=== PATIENT | male | born 1980 | race Caucasian/White ===

== ENCOUNTER → 2023-03-14 | Outpatient (CLI) | payer OTHER ==
--- NOTE | 2023-03-14 09:06 | US ---
EXAMINATION TYPE: US liver DATE OF EXAM: 03/14/2023 COMPARISON: NONE CLINICAL INDICATION: Male, 42 years old with history of R94.5; Elevated liver enzymes TECHNIQUE: Multiple sonographic images of the right upper quadrant are obtained. FINDINGS: EXAM MEASUREMENTS: Liver Length: 20.3 cm Gallbladder Wall: 0.2 cm CBD: 0.7 cm Right Kidney: 12.0 x 5.7 x 6.0 cm Pancreas: wnl Liver: enlarged, heterogeneous with multiple hypoechoic and isoechoic lesions seen throughout with o ne of the largest measuring 3.6 x 3.1 x 3.8cm Gallbladder: wnl Evidence for sonographic Gross's sign: no CBD: dilated Right Kidney: wnl The visualized portions of the pancreas are unremarkable. The liver is enlarged multiple hypoechoic a nd isoechoic lesions throughout. The largest measures up to 3.8 cm in the left hepatic lobe. Gallblad sybil is within normal limits without evidence for pericholecystic fluid, wall thickening, or cholelith iasis. Per valuer, negative sonographic Gross sign. Common bile duct is mildly prominent measur ing up to 0.7 cm. Right kidney is unremarkable without evidence of hydronephrosis, solid mass, or sha dowing calculi. IMPRESSION: 1. Diffusely heterogenous and enlarged liver with multiple indeterminate masses identified. Etiologi es include multiple hemangiomas versus metastasis versus other. Further evaluation with MR or CT abdo men with and without IV contrast (liver mass protocol) is recommended. 2. Minimally prominent common bile duct measuring up to 0.7 cm. Further evaluation with MRCP is asmita mmended in the setting of #1.
== END | disposition home or self-care (01) ==
LOC: RADUSWWP 06:51
PROVIDERS: ATTEND Internal Medicine
DX: R16.0 Hepatomegaly, not elsewhere classified (principal); K80.50 Calculus of bile duct without cholangitis or cholecystitis without obstruction; R94.5 Abnormal results of liver function studies
CPT/HCPCS: 76705

== ENCOUNTER → 2023-03-23 | Outpatient (CLI) | payer OTHER ==
--- NOTE | 2023-03-23 13:56 | MR ---
EXAMINATION TYPE: MR liver wo/w con DATE OF EXAM: 03/23/2023 10:23 AM INDICATION: Patient age:Male; 42 years old; Reason for study: R16.0; COMPARISON: Ultrasound 03/14/2023 TECHNIQUE: Multiplanar multi-sequence imaging was performed without contrast. Post contrast imaging was performed. Post IV contrast subtraction images were also submitted for review. IV Contrast: 10 cc Gadavist FINDINGS: LOWER CHEST: Scattered nodules are seen throughout the lungs. There are greater than 20 lesions visua lized. The largest in the right lower lung measuring 14 mm. In the left lower lung measuring up to 15 mm. ABDOMEN Liver: Diffuse scattered lesions are seen throughout the liver the largest in the right hepatic lobe near the dome measuring up to 8.7 cm and in the left hepatic lobe segment IVb measuring 3.8 cm. These all demonstrate heterogenous postcontrast enhancement. No evidence for steatosis or cirrhosis. Gallbladder and Bile ducts: Unremarkable. Pancreas: Unremarkable. Spleen: No masses visualized. Adrenal glands: Unremarkable. Kidneys: No masses visualized. Stomach and Bowel: Unremarkable as visualized. Peritoneum: No evidence of pneumoperitoneum or free fluid. Vasculature: Unremarkable. No aortic aneurysm. Musculoskeletal: The osseous structures appear intact. Lymph Nodes: No gross evidence for lymphadenopathy. Abdominal wall: Fat-containing umbilical hernia. IMPRESSION: Partially evaluated lung bases demonstrate greater than 20 pulmonary nodules, this in combination wit h multiple hepatic masses is concerning for metastatic disease, further workup is recommended for [facility] malignancy. No primary malignancy definitively visualized in the [id number].
== END | disposition home or self-care (01) ==
LOC: RADMRIMAIN 09:10
PROVIDERS: ATTEND Internal Medicine
DX: R91.8 Other nonspecific abnormal finding of lung field (principal); R16.0 Hepatomegaly, not elsewhere classified
CPT/HCPCS: 74183; A9585

== ENCOUNTER 2023-03-27 21:38 | Emergency (ER) | payer OTHER ==
[2023-03-27 22:09] VITALS: BP 110/77; PULSE 78; RESP 18; TEMP 98.2
[2023-03-28] MEDS ORDERED: PANTOPRAZOLE 40 MG/10 ML VIAL ONE (00:42)
[2023-03-28] MEDS ORDERED: KETOROLAC 15 MG/ML 1 ML VIAL ONE (00:42)
[2023-03-28] MEDS ORDERED: SODIUM CHLORIDE 0.9% 1,000 ML BAG ONE (00:42)
[2023-03-28 06:03] LABS: ALT 30 U/L (4-49); AST 58 U/L (17-59); African American GFR (CKD) >90 (>60 ml/min/1.73 sqM); Albumin 3.3 g/dL (3.5-5.0); Alkaline Phosphatase 351 U/L (38-126); Anion Gap 8 mmol/L; Blood Urea Nitrogen 11 mg/dL (9-20); Calcium 8.3 mg/dL (8.4-10.2); Carbon Dioxide 20 mmol/L (22-30); Chloride 108 mmol/L (98-107); Glucose 100 mg/dL (74-99); Non-African American GFR(CKD) >90 (>60 ml/min/1.73 sqM); Potassium 4.1 mmol/L (3.5-5.1); Sodium 136 mmol/L (137-145); Total Bilirubin 0.6 mg/dL (0.2-1.3); Total Protein 6.9 g/dL (6.3-8.2)
[2023-03-28 06:08] LABS: Anisocytosis Slight; Basophils # (A) 0.1 k/uL (0-0.2); Basophils % (A) 1 %; Eosinophils # (A) 0.9 k/uL (0-0.7); Eosinophils % (A) 9 %; HCT 24.8 % (39.0-53.0); HGB 7.3 gm/dL (13.0-17.5); Hypochromasia Marked; Lymphocytes # (A) 1.6 k/uL (1.0-4.8); Lymphocytes % (A) 16 %; MCH 20.9 pg (25.0-35.0); MCHC 29.3 g/dL (31.0-37.0); MCV 71.3 fL (80.0-100.0); Mean Platelet Volume 9.5; Microcytosis Moderate; Monocytes # (A) 0.8 k/uL (0-1.0); Monocytes % (A) 8 %; Neutrophils # (A) 6.1 k/uL (1.3-7.7); Neutrophils % (A) 63 %; Platelet Count 389 k/uL (150-450); Poikilocytosis Slight; RBC 3.48 m/uL (4.30-5.90); RDW 17.2 % (11.5-15.5); WBC 9.6 k/uL (3.8-10.6)
== END 2023-03-28 04:15 | disposition home or self-care (01) ==
LOC: EC 21:38
DX: M79.10 Myalgia, unspecified site (principal)
CPT/HCPCS: 99283 ×2; 36415; 86900; 86901; 80053; 85025; 86850; 82272; 96374; 96375; J1885; C9113

== ENCOUNTER → 2023-04-06 | Outpatient (CLI) | payer OTHER ==
--- NOTE | 2023-04-06 14:51 | PE ---
EXAMINATION TYPE: PET CT fusion skull to thigh DATE OF EXAM: 04/06/2023 COMPARISON: MRI liver March 22, 2023 HISTORY: Solitary pulmonary nodule TECHNIQUE: Following the intravenous administration of 13.5 mCi of F-18 FDG, whole body images are p erformed from the skull base to the midthigh. Images are reviewed on the computer in the coronal, ax ial, and sagittal planes. Reconstructed rotating images are created on independent workstation and r eviewed on the computer. A localization and attenuation correction CT is performed in conjunction w ith the PET scan. Blood glucose level equals 76 SCAN: Initial Scan FINDINGS: SKULL BASE AND NECK: No areas of abnormal suspicious hypermetabolic uptake. CHEST, MEDIASTINUM, AND HILAR REGION: There are multiple scattered pulmonary nodules of varying size and shape bilaterally more numerous in the lower lungs showing mild hypermetabolic uptake. For refere nce one measures 2.2 x 1.9 cm axial image 104, max SUV is 5.14. Findings consistent with hematogenous metastatic spread of neoplasm. ABDOMEN AND PELVIS: Innumerable hypermetabolic masses throughout the slightly enlarged liver correlat e with recent MRI. Max SUV is 9.35 on axial image 136. There is abnormal 0.0 x 1.5 cm lymph node towards the kiara hepatis axial image 160, max SUV is 6.59. There is apical core type mass or neoplasm in the sigmoid colon of the pelvis near axial image 227, a bnormal hypermetabolic uptake is seen, max SUV is 12.5 to. There is suspicious 1.8 cm adjacent hyperm etabolic peritoneal lymph node or deposit axial image 211 superior to this, max SUV is 7.8. OSSEOUS STRUCTURES: No areas of abnormal hypermetabolic uptake. OTHER CT: There is coronary artery stent in the RCA distribution. There is coronary artery calcificat ion the LAD distribution. There is moderate to large sized fat-containing umbilical hernia. IMPRESSION: Overall findings are consistent with primary distal sigmoid cancer with pulmonary and hep atic metastatic disease as detailed above and few abnormal lymph nodes/peritoneal deposits in the abd omen and pelvis.
== END | disposition home or self-care (01) ==
LOC: RADPETMAIN 09:35
PROVIDERS: ATTEND Internal Medicine
DX: R91.1 Solitary pulmonary nodule (principal)
CPT/HCPCS: 78815; A9552

== ENCOUNTER 2023-04-10 19:07 | Emergency (ER) | payer OTHER ==
[2023-04-10 19:35] VITALS: BP 136/77; PULSE 94; RESP 18; TEMP 99.8
[2023-04-10] MEDS ORDERED: SODIUM CHLORIDE 0.9% 1,000 ML IV STA (19:44)
[2023-04-10] MEDS ORDERED: KETOROLAC 15 MG/ML 1 ML VIAL IVP STA (19:44)
[2023-04-10 20:05] LABS: Appearance,Urine Clear (Clear); Bilirubin,Urine Negative (Negative); Blood,Urine Negative (Negative); Color,Urine Yellow; Glucose,Urine (UA) Negative (Negative); Ketones,Urine 1+ (Negative); Leukocyte Esterase,Urine Negative (Negative); Mucus,Urine Rare /hpf; Nitrite,Urine Negative (Negative); Protein,Urine 2+ (Negative); RBC,Urine 1 /hpf (0-5); Specific Gravity,Urine 1.022 (1.001-1.035); WBC,Urine 3 /hpf (0-5)
[2023-04-10 20:07] LABS: Anisocytosis Moderate; Basophils # (A) 0.1 k/uL (0-0.2); Basophils % (A) 1 %; Eosinophils # (A) 1.1 k/uL (0-0.7); Eosinophils % (A) 9 %; HCT 28.5 % (39.0-53.0); HGB 8.3 gm/dL (13.0-17.5); Hypochromasia Marked; Lymphocytes # (A) 1.9 k/uL (1.0-4.8); Lymphocytes % (A) 16 %; MCH 21.7 pg (25.0-35.0); MCHC 29.2 g/dL (31.0-37.0); MCV 74.3 fL (80.0-100.0); Mean Platelet Volume 9.6; Microcytosis Moderate; Monocytes # (A) 0.7 k/uL (0-1.0); Monocytes % (A) 6 %; Neutrophils # (A) 7.7 k/uL (1.3-7.7); Neutrophils % (A) 66 %; Platelet Count 357 k/uL (150-450); RBC 3.83 m/uL (4.30-5.90); RDW 21.8 % (11.5-15.5); WBC 11.8 k/uL (3.8-10.6)
[2023-04-10 20:17] LABS: ALT 31 U/L (4-49); AST 73 U/L (17-59); African American GFR (CKD) >90 (>60 ml/min/1.73 sqM); Albumin 3.7 g/dL (3.5-5.0); Alkaline Phosphatase 411 U/L (38-126); Amylase 51 U/L (30-110); Anion Gap 9 mmol/L; Blood Urea Nitrogen 15 mg/dL (9-20); Calcium 8.8 mg/dL (8.4-10.2); Carbon Dioxide 22 mmol/L (22-30); Chloride 107 mmol/L (98-107); Glucose 84 mg/dL (74-99); Lipase 70 U/L (23-300); Non-African American GFR(CKD) >90 (>60 ml/min/1.73 sqM); Potassium 4.4 mmol/L (3.5-5.1); Sodium 138 mmol/L (137-145); Total Bilirubin 0.8 mg/dL (0.2-1.3)
[2023-04-10 20:22] LABS: INR 1.1 (<1.2)
[2023-04-10 20:35] LABS: Partial Thromboplastin Time 21.3 sec (22.0-30.0)
--- NOTE | 2023-04-10 22:23 | US ---
EXAMINATION TYPE: US abdomen limited DATE OF EXAM: 04/10/2023 COMPARISON: PET CT 04/06/2023 CLINICAL INDICATION: Male, 42 years old with history of RUQ pain; Colon cancer. Liver mets per other imaging modality. Patient is not NPO TECHNIQUE: Multiple sonographic images of the right upper quadrant are obtained. FINDINGS: EXAM MEASUREMENTS: Liver Length: 22.2 cm Gallbladder Wall: 0.2 cm CBD: 0.5 cm Right Kidney: 13.1 x 4.6 x 5.4 cm Pancreas: Head not well visualized Liver: Enlarged in size. Multiple focal lesions seen throughout liver. Largest on left = 3.8 x 4.6 x 3.8 cm. Gallbladder: Appears small in size, could be due to not being NPO Evidence for sonographic Gross's sign: neg CBD: wnl Right Kidney: No hydronephrosis or masses seen IMPRESSION: Hepatic compatible with metastatic lesions.
--- NOTE | 2023-04-10 22:53 | ED ---
Abdominal Pain HPI - General Chief Complaint: Abdominal Pain Stated Complaint: right side pain Time Seen by Provider: 04/10/23 19:37 Source: patient Mode of arrival: ambulatory - History of Present Illness Initial Comments: 42-year-old male presenting with chief complaint of right upper quadrant abdominal pain ongoing for several months but worsening in recent days. Patient is newly diagnosed with colon cancer, he recently received a PET scan and has an upcoming follow-up appointment with his oncologist. Patient also has history of low hemoglobin. He denies any nausea, vomiting, fever, chills. States that he has periodically had blood in his stool which has not changed over the last several months. Patient has history of polysubstance abuse. Denies drinking a lcohol. States that he is currently living in his van. No chest pain or difficulty breathing. No dizziness or palpitations or weakness. Patient is not currently on any chemotherapy or radiation therapy - Related Data Home Medications Medication Instructions Recorded Confirmed Ibuprofen [Motrin] 800 mg PO Q8H PRN 03/29/23 04/06/23 Allergies Allergy/AdvReac Type Severity Reaction Status Date / Time No Known Allergies Allergy Verified 04/10/23 19:35 Review of Systems ROS Statement: Those systems with pertinent positive or pertinent negative responses have been documented in the HPI. ROS Other: All systems not noted in ROS Statement are negative. Past Medical History Past Medical History: Coronary Artery Disease (CAD), Hyperlipidemia, Hypertension Additional Past Medical History / Comment(s): Liver mass History of Any Multi-Drug Resistant Organisms: None Reported Past Surgical History: Heart Catheterization With Stent Date of Last Stent Placement:: 2011 Past Psychological History: No Psychological Hx Reported Smoking Status: Vaper Past Alcohol Use History: None Reported Past Drug Use History: None Reported General Exam Limitations: no limitations General appearance: alert, in no apparent distress Head exam: Present: atraumatic, normocephalic, normal inspection Eye exam: Present: normal appearance, EOMI. Absent: scleral icterus, periorbital swelling Neck exam: Present: normal inspection, full ROM Respiratory exam: Present: normal lung sounds bilaterally. Absent: respiratory distress, wheezes, rales, rhonchi, stridor Cardiovascular Exam: Present: regular rate, normal rhythm, normal heart sounds. Absent: systolic murmur, diastolic murmur, rubs, gallop, clicks GI/Abdominal exam: Present: soft, normal bowel sounds, mass (RUQ). Absent: distended, tenderness, guarding, rebound, rigid Neurological exam: Present: alert, oriented X3, CN II-XII intact Psychiatric exam: Present: normal affect, normal mood Skin exam: Present: warm, dry, intact, normal color. Absent: rash Course Vital Signs 04/10/23 19:31 Temperature 99.8 F H Pulse Rate 94 Respiratory 18 Rate Blood Pressure 136/77 O2 Sat by Pulse 96 Oximetry Medical Decision Making - Medical Decision Making Was pt. sent in by a medical professional or institution (, PA, NUCLEAR MEDICAL TECH, urgent care, hospital, or penitentiary...) When possible be specific @ -No Did you speak to anyone other than the patient for history (EMS, parent, family, police, friend...)? What history was obtained from this source @ -No Did you review nursing and triage notes (agree or disagree)? Why? @ -I reviewed and agree with nursing and triage notes Were old charts reviewed (outside hosp., previous admission, EMS record, old EKG, old radiological studies, urgent care reports/EKG's, penitentiary records)? Report findings @ -Reviewed the recent PET scan which showed findings consistent with primary distal sigmoid cancer with pulmonary and hepatic metastatic disease Differential Diagnosis (chest pain, altered mental status, abdominal pain women, abdominal pain men, vaginal bleeding, weakness, fever, dyspnea, syncope, headache, dizziness, GI bleed, back pain, seizure, CVA, palpatations, mental health, musculoskeletal)? @ -MDM Differential Abdominal Pain Men: Appendicitis, cholecystitis, diverticulosis, ischemic bowel, pancreatitis, hepatitis, UTI, gastroenteritis, AAA, incarcerated hernia, bowel obstruction, constipation, inflammatory bowel, hepatitis, peptic ulcer disease, splenic infarction, perforated viscus, testicular torsion... This is not meant to be an all-inclusive list EKG interpreted by me (3pts min.). @ -As above X-rays interpreted by me (1pt min.). @ -None done CT interpreted by me (1pt min.). @ -None done U/S interpreted by me (1pt. min.). @ -Ultrasound shows hepatic compatible with metastatic lesions What testing was considered but not performed or refused? (CT, X-rays, U/S, labs)? Why? @ -None What meds were considered but not given or refused? Why? @ -None Did you discuss the management of the patient with other professionals (professionals i.e. , PA, NUCLEAR MEDICAL TECH, lab, RT, psych nurse, marriage and family social worker, social sciences professor, teacher, parole or probation officer, case work aide)? Give summary @ -No Was smoking cessation discussed for >3mins.? @ -No Was critical care preformed (if so, how long)? @ -No Were there social determinants of health that impacted care today? How? (Homelessness, low income, unemployed, alcoholism, drug addiction, transportation, low edu. Level, literacy, decrease access to med. care, fci, rehab)? @ -Homelessness, history of polysubstance abuse Was there de-escalation of care discussed even if they declined (Discuss DNR or withdrawal of care, Hospice)? DNR status @ -No What co-morbidities impacted this encounter? (DM, HTN, Smoking, COPD, CAD, Cancer, CVA, ARF, Chemo, Hep., AIDS, mental health diagnosis, sleep apnea, morbid obesity)? @ -Colon cancer with metastasis Was patient admitted / discharged? Hospital course, mention meds given and route , prescriptions, significant lab abnormalities, going to OR and other pertinent info. @ -42-year-old male presenting with chief complaint of right upper quadrant pain patient is newly diagnosed with colon cancer. On physical examination masses palpated in the right upper quadrant. Patient recently had a PET scan performed which showed metastasis to the liver and lungs. Laboratory shows WBC 11.8. Hemoglobin is 8.3 which is slightly improved from previous values. Normal bilirubin of 0.8. Abdominal ultrasound is consistent with metastatic lesions. Patient appears to have a poor understanding of his cancer and metastatic lesions. I explained to the patient that his cancer has spread from the colon to the liver in the lungs which is likely why he is experiencing this pain ongoing for several months. His labs are consistent with his baseline and he would be stable to follow up with his oncologist and PCP and outpatient setting. Patient states that he has an upcoming appointment with his oncologist. Follow-up with PCP. Report back to ER with any new or worsening symptoms. Discussed return parameters and answered all questions. Patient con veyed verbal understanding and agreed to the plan. I discussed this case in detail with my attending Dr. Harper Undiagnosed new problem with uncertain prognosis? @ -No Drug Therapy requiring intensive monitoring for toxicity (Heparin, Nitro, I nsulin, Cardizem)? @ -No Were any procedures done? @ -No Diagnosis/symptom? @ -Colon cancer with metastatic lesions to the liver Acute, or Chronic, or Acute on Chronic? @ -Acute Uncomplicated (without systemic symptoms) or Complicated (systemic symptoms)? @ -Complicated Side effects of treatment? @ -No Exacerbation, Progression, or Severe Exacerbation? @ -No Poses a threat to life or bodily function? How? (Chest pain, [place], [place], pneumonia, PE, COPD, DKA, ARF, appy, cholecystitis, CVA, Diverticulitis, Homicidal, Suicidal, threat to staff... and all critical care pts) @ -Yes - Lab Data Result diagrams: 04/10/23 19:46 04/10/23 19:46 Lab Results 04/10/23 04/10/23 04/10/23 Range/Units 19:46 19:46 19:46 WBC 11.8 H (3.8-10.6) k/uL RBC 3.83 L (4.30-5.90) m/uL Hgb 8.3 L (13.0-17.5) gm/dL Hct 28.5 L (39.0-53.0) % MCV 74.3 L (80.0-100.0) fL MCH 21.7 L (25.0-35.0) pg MCHC 29.2 L (31.0-37.0) g/dL RDW 21.8 H (11.5-15.5) % Plt Count 357 (150-450) k/uL MPV 9.6 Neutrophils % 66 % Lymphocytes % 16 % Monocytes % 6 % Eosinophils % 9 % Basophils % 1 % Neutrophils # 7.7 (1.3-7.7) k/uL Lymphocytes # 1.9 (1.0-4.8) k/uL Monocytes # 0.7 (0-1.0) k/uL Eosinophils # 1.1 H (0-0.7) k/uL Basophils # 0.1 (0-0.2) k/uL Hypochromasia Marked Anisocytosis Moderate Microcytosis Moderate PT 11.0 (9.0-12.0) sec INR 1.1 (<1.2) APTT 21.3 L (22.0-30.0) sec Sodium 138 (137-145) mmol/L Potassium 4.4 (3.5-5.1) mmol/L Chloride 107 (98-107) mmol/L Carbon Dioxide 22 (22-30) mmol/L Anion Gap 9 mmol/L BUN 15 (9-20) mg/dL Creatinine 0.61 L (0.66-1.25) mg/dL Est GFR (CKD-EPI)AfAm >90 (>60 ml/min/1.73 sqM) Est GFR (CKD-EPI)NonAf >90 (>60 ml/min/1.73 sqM) Glucose 84 (74-99) mg/dL Plasma Lactic Acid Markus (0.7-2.0) mmol/L Calcium 8.8 (8.4-10.2) mg/dL Total Bilirubin 0.8 (0.2-1.3) mg/dL AST 73 H (17-59) U/L ALT 31 (4-49) U/L Alkaline Phosphatase 411 H (38-126) U/L Total Protein 8.0 (6.3-8.2) g/dL Albumin 3.7 (3.5-5.0) g/dL Amylase 51 (30-110) U/L Lipase 70 (23-300) U/L Urine Color Urine Appearance (Clear) Urine pH (5.0-8.0) Ur Specific Wagoner (1.001-1.035) Urine Protein (Negative) Urine Glucose (UA) (Negative) Urine Ketones (Negative) Urine Blood (Negative) Urine Nitrite (Negative) Urine Bilirubin (Negative) Urine Urobilinogen (<2.0) mg/dL Ur Leukocyte Esterase (Negative) Urine RBC (0-5) /hpf Urine WBC (0-5) /hpf Urine Mucus (None) /hpf Blood Type Blood Type Recheck Bld Type Recheck Status Antibody Screen Spec Expiration Date 04/10/23 04/10/23 04/10/23 Range/Units 19:46 19:46 19:46 WBC (3.8-10.6) k/uL RBC (4.30-5.90) m/uL Hgb (13.0-17.5) gm/dL Hct (39.0-53.0) % MCV (80.0-100.0) fL MCH (25.0-35.0) pg MCHC (31.0-37.0) g/dL RDW (11.5-15.5) % Plt Count (150-450) k/uL MPV Neutrophils % % Lymphocytes % % Monocytes % % Eosinophils % % Basophils % % Neutrophils # (1.3-7.7) k/uL Lymphocytes # (1.0-4.8) k/uL Monocytes # (0-1.0) k/uL Eosinophils # (0-0.7) k/uL Basophils # (0-0.2) k/uL Hypochromasia Anisocytosis Microcytosis PT (9.0-12.0) sec INR (<1.2) APTT (22.0-30.0) sec Sodium (137-145) mmol/L Potassium (3.5-5.1) mmol/L Chloride (98-107) mmol/L Carbon Dioxide (22-30) mmol/L Anion Gap mmol/L BUN (9-20) mg/dL Creatinine (0.66-1.25) mg/dL Est GFR (CKD-EPI)AfAm (>60 ml/min/1.73 sqM) Est GFR (CKD-EPI)NonAf (>60 ml/min/1.73 sqM) Glucose (74-99) mg/dL Plasma Lactic Acid Markus 0.9 (0.7-2.0) mmol/L Calcium (8.4-10.2) mg/dL Total Bilirubin (0.2-1.3) mg/dL AST (17-59) U/L ALT (4-49) U/L Alkaline Phosphatase (38-126) U/L Total Protein (6.3-8.2) g/dL Albumin (3.5-5.0) g/dL Amylase (30-110) U/L Lipase (23-300) U/L Urine Color Yellow Urine Appearance Clear (Clear) Urine pH 6.0 (5.0-8.0) Ur Specific Wagoner 1.022 (1.001-1.035) Urine Protein 2+ H (Negative) Urine Glucose (UA) Negative (Negative) Urine Ketones 1+ H (Negative) Urine Blood Negative (Negative) Urine Nitrite Negative (Negative) Urine Bilirubin Negative (Negative) Urine Urobilinogen 2.0 (<2.0) mg/dL Ur Leukocyte Esterase Negative (Negative) Urine RBC 1 (0-5) /hpf Urine WBC 3 (0-5) /hpf Urine Mucus Rare H (None) /hpf Blood Type B Positive Blood Type Recheck B Pos Bld Type Recheck Status No Antibody Screen NEGATIVE Spec Expiration Date 04/13/20232345 Disposition Clinical Impression: Colon cancer metastasized to liver Disposition: HOME SELF-CARE Condition: Fair Instructions (If sedation given, give patient instructions): Abdominal Pain (ED) Additional Instructions: Follow-up with PCP and oncologist. Report back to ER with any new or worsening symptoms. Take Motrin as needed for pain control. Is patient prescribed a controlled substance at d/c from ED?: No Referrals: [facility] [Primary Care Provider] - 1-2 days Time of Disposition: 22:52
== END 2023-04-10 23:04 | disposition home or self-care (01) ==
LOC: EC 19:07
DX: C18.9 Malignant neoplasm of colon, unspecified (principal); C78.7 Secondary malignant neoplasm of liver and intrahepatic bile duct; I10 Essential (primary) hypertension; F17.290 Nicotine dependence, other tobacco product, uncomplicated
CPT/HCPCS: 36415; 86900; 86901; 80053; 82150; 83605; 83690; 85025; 85610; 85730; 86850; 81001; 76705; 99284; 96374; 96361; J1885

== ENCOUNTER 2023-04-15 20:10 | Emergency (ER) | payer OTHER ==
[2023-04-15 20:16] VITALS: TEMP 98.6
[2023-04-15] MEDS ORDERED: SODIUM CHLORIDE 0.9% 1,000 ML IV ONE (20:47)
[2023-04-15 20:59] LABS: Anisocytosis Moderate; Basophils # (A) 0.1 k/uL (0-0.2); Basophils % (A) 0 %; Eosinophils # (A) 1.3 k/uL (0-0.7); Eosinophils % (A) 12 %; HCT 27.7 % (39.0-53.0); HGB 8.2 gm/dL (13.0-17.5); Hypochromasia Marked; Lymphocytes # (A) 1.3 k/uL (1.0-4.8); Lymphocytes % (A) 13 %; MCH 22.3 pg (25.0-35.0); MCHC 29.5 g/dL (31.0-37.0); MCV 75.5 fL (80.0-100.0); Mean Platelet Volume 9.2; Microcytosis Moderate; Monocytes # (A) 0.6 k/uL (0-1.0); Monocytes % (A) 6 %; Neutrophils # (A) 7.2 k/uL (1.3-7.7); Neutrophils % (A) 68 %; Platelet Count 380 k/uL (150-450); RBC 3.66 m/uL (4.30-5.90); WBC 10.7 k/uL (3.8-10.6)
[2023-04-15 21:24] LABS: Prothrombin Time 10.7 sec (9.0-12.0)
[2023-04-15 21:26] LABS: Partial Thromboplastin Time 21.7 sec (22.0-30.0)
[2023-04-15 21:44] LABS: ALT 29 U/L (4-49); AST 68 U/L (17-59); African American GFR (CKD) >90 (>60 ml/min/1.73 sqM); Albumin 3.4 g/dL (3.5-5.0); Alkaline Phosphatase 363 U/L (38-126); Anion Gap 9 mmol/L; Blood Urea Nitrogen 17 mg/dL (9-20); Carbon Dioxide 21 mmol/L (22-30); Chloride 108 mmol/L (98-107); Glucose 97 mg/dL (74-99); Non-African American GFR(CKD) >90 (>60 ml/min/1.73 sqM); Potassium 4.4 mmol/L (3.5-5.1); Sodium 138 mmol/L (137-145); Total Bilirubin 0.7 mg/dL (0.2-1.3); Total Protein 7.5 g/dL (6.3-8.2)
[2023-04-15 22:51] VITALS: BP 118/72; PULSE 94; RESP 18
--- NOTE | 2023-05-11 01:02 | ED ---
General Adult HPI - General Chief complaint: GI Bleed Stated complaint: blood in stool Time Seen by Provider: 04/15/23 20:29 Source: patient, RN notes reviewed Mode of arrival: ambulatory Limitations: no limitations - History of Present Illness Initial comments: 42-year-old male with a past medical history significant for colon cancer presents to the emergency department the chief complaint of blood in stool. Patient reports that he has normally however he has been passing bright red blood and clot in the recent day. Reports that he has a colonoscopy scheduled with Dr. Hernandes tomorrow. Denies any dizziness, lightheadedness, shortness breath. He denies any anticoagulant use. - Related Data Home Medications Medication Instructions Recorded Confirmed Docusate [Colace] 100 mg PO BID PRN 04/15/23 04/19/23 HYDROcodone/APAP 5-325MG [[place] 1 tab PO Q4HR PRN 04/15/23 04/19/23 5-325] Naproxen Sodium [Aleve] 440 mg PO Q8H PRN 04/15/23 04/19/23 Metoprolol Succinate [Metoprolol 25 mg PO DAILY 04/19/23 04/19/23 Succinate ER] Allergies Allergy/AdvReac Type Severity Reaction Status Date / Time No Known Allergies Allergy Verified 05/01/23 09:22 Review of Systems ROS Statement: Those systems with pertinent positive or pertinent negative responses have been documented in the HPI. ROS Other: All systems not noted in ROS Statement are negative. Past Medical History Past Medical History: Coronary Artery Disease (CAD), Cancer, Hyperlipidemia, Hy pertension Additional Past Medical History / Comment(s): Liver mass, Stage 4 colon cancer History of Any Multi-Drug Resistant Organisms: None Reported Past Surgical History: Heart Catheterization With Stent Date of Last Stent Placement:: 2011 Past Psychological History: No Psychological Hx Reported Smoking Status: Vaper Past Alcohol Use History: None Reported Past Drug Use History: None Reported General Exam - General Exam Comments Initial Comments: General: Alert, in no acute distress Head: atraumatic normocephalic. Eyes PERRL, EOMI intact, mucous membranes moist Respiratory: Lungs clear to auscultation bilaterally Cardiovascular: Heart rate regular rate and rhythm Abdominal: Soft without guarding or rebound Extremities: Normal inspection with full range of motion and normal capillary refill Neuroogic: alert and oriented 3, CN II-XII intact, able to ambulate with steady gait Skin: warm dry and intact with normal color Limitations: no limitations Course Vital Signs 04/15/23 04/15/23 20:12 22:50 Temperature 98.6 F Pulse Rate 98 94 Respiratory 16 18 Rate Blood Pressure 157/82 118/72 O2 Sat by Pulse 97 99 Oximetry Medical Decision Making - Medical Decision Making Was pt. sent in by a medical professional or institution (, ED, PICKER TENDER HELPER, urgent care, hospital, or senior care...) When possible be specific @ -[No] Did you speak to anyone other than the patient for history (EMS, parent, family, police, friend...)? What history was obtained from this source @ -[No] Did you review nursing and triage notes (agree or disagree)? Why? @ -[I reviewed and agree with nursing and triage notes] Were old charts reviewed (outside hosp., previous admission, EMS record, old EKG, old radiological studies, urgent care reports/EKG's, senior care records)? Report findings @ -[No old charts were reviewed] Differential Diagnosis (chest pain, altered mental status, abdominal pain women, abdominal pain men, vaginal bleeding, weakness, fever, dyspnea, syncope, headache, dizziness, GI bleed, back pain, seizure, CVA, palpatations, mental health, musculoskeletal)? @ -[not applicable] EKG interpreted by me (3pts min.). @ -[As above] X-rays interpreted by me (1pt min.). @ -[None done] CT interpreted by me (1pt min.). @ -[None done] U/S interpreted by me (1pt. min.). @ -[None done] What testing was considered but not performed or refused? (CT, X-rays, U/S, labs)? Why? @ -[None] What meds were considered but not given or refused? Why? @ -[None] Did you discuss the management of the patient with other professionals (professionals i.e. ED Wood, PICKER TENDER HELPER, lab, RT, psych nurse, social science instructor, firesetter, teacher, audit officer, clinical case manager)? Give summary @ -[No] Was smoking cessation discussed for >3mins.? @ -[No] Was critical care preformed (if so, how long)? @ -[No] Were there social determinants of health that impacted care today? How? (Homelessness, low income, unemployed, alcoholism, drug addiction, transportation, low edu. Level, literacy, decrease access to med. care, shelter, rehab)? @ -[No] Was there de-escalation of care discussed even if they declined (Discuss DNR or withdrawal of care, Hospice)? DNR status @ -[No] What co-morbidities impacted this encounter? (DM, HTN, Smoking, COPD, CAD, Cancer, CVA, ARF, Chemo, Hep., AIDS, mental health diagnosis, sleep apnea, morbid obesity)? @ -[None] Was patient admitted / discharged? Hospital course, mention meds given and route, prescriptions, significant lab abnormalities, going to OR and other pertinent info. @ -[AGAINST MEDICAL ADVICE. This is a 42-year-old male who presents the emergency department with rectal bleeding. Patient had a thorough history and physical exam performed on the ED. Physical exam is essentially unremarkable. Heart rate regular rate and rhythm, lungs clear to auscultation bilaterally, abdomen soft nontender. Hemoccult positive. I discussed the results in detail with the patient verbalized understanding and all questions were addressed. Patient is verbalizing that he would like to leave AGAINST MEDICAL ADVICE. Risks and benefits were discussed at length including were discussed with the patient verbalized understanding. Undiagnosed new problem with uncertain prognosis? @ -[No] Drug Therapy requiring intensive monitoring for toxicity (Heparin, Nitro, Insulin, Cardizem)? @ -[No] Were any procedures done? @ -[No] Diagnosis/symptom? @ -Rectal Bleeding Acute, or Chronic, or Acute on Chronic? @ -Acute Uncomplicated (without systemic symptoms) or Complicated (systemic symptoms)? @ -[default] Side effects of treatment? @ -[No] Exacerbation, Progression, or Severe Exacerbation? @ -[No] Poses a threat to life or bodily function? How? (Chest pain, USA, IA, pneumonia, PE, COPD, DKA, ARF, appy, cholecystitis, CVA, Diverticulitis, Homicidal, Suicidal, threat to staff... and all critical care pts) @ -Moderate Likelihood - Lab Data Result diagrams: 04/15/23 20:35 04/15/23 20:35 Lab Results 04/15/23 04/15/23 04/15/23 Range/Units 20:30 20:35 20:35 WBC 10.7 H (3.8-10.6) k/uL RBC 3.66 L (4.30-5.90) m/uL Hgb 8.2 L (13.0-17.5) gm/dL Hct 27.7 L (39.0-53.0) % MCV 75.5 L (80.0-100.0) fL MCH 22.3 L (25.0-35.0) pg MCHC 29.5 L (31.0-37.0) g/dL RDW 22.0 H (11.5-15.5) % Plt Count 380 (150-450) k/uL MPV 9.2 Neutrophils % 68 % Lymphocytes % 13 % Monocytes % 6 % Eosinophils % 12 % Basophils % 0 % Neutrophils # 7.2 (1.3-7.7) k/uL Lymphocytes # 1.3 (1.0-4.8) k/uL Monocytes # 0.6 (0-1.0) k/uL Eosinophils # 1.3 H (0-0.7) k/uL Basophils # 0.1 (0-0.2) k/uL Hypochromasia Marked Anisocytosis Moderate Microcytosis Moderate PT (9.0-12.0) sec INR (<1.2) APTT (22.0-30.0) sec Sodium 138 (137-145) mmol/L Potassium 4.4 (3.5-5.1) mmol/L Chloride 108 H (98-107) mmol/L Carbon Dioxide 21 L (22-30) mmol/L Anion Gap 9 mmol/L BUN 17 (9-20) mg/dL Creatinine 0.58 L (0.66-1.25) mg/dL Est GFR (CKD-EPI)AfAm >90 (>60 ml/min/1.73 sqM) Est GFR (CKD-EPI)NonAf >90 (>60 ml/min/1.73 sqM) Glucose 97 (74-99) mg/dL Calcium 9.0 (8.4-10.2) mg/dL Total Bilirubin 0.7 (0.2-1.3) mg/dL AST 68 H (17-59) U/L ALT 29 (4-49) U/L Alkaline Phosphatase 363 H (38-126) U/L Total Protein 7.5 (6.3-8.2) g/dL Albumin 3.4 L (3.5-5.0) g/dL Stool Occult Blood Positive (Negative) 04/15/23 Range/Units 20:35 WBC (3.8-10.6) k/uL RBC (4.30-5.90) m/uL Hgb (13.0-17.5) gm/dL Hct (39.0-53.0) % MCV (80.0-100.0) fL MCH (25.0-35.0) pg MCHC (31.0-37.0) g/dL RDW (11.5-15.5) % Plt Count (150-450) k/uL MPV Neutrophils % % Lymphocytes % % Monocytes % % Eosinophils % % Basophils % % Neutrophils # (1.3-7.7) k/uL Lymphocytes # (1.0-4.8) k/uL Monocytes # (0-1.0) k/uL Eosinophils # (0-0.7) k/uL Basophils # (0-0.2) k/uL Hypochromasia Anisocytosis Microcytosis PT 10.7 (9.0-12.0) sec INR 1.0 (<1.2) APTT 21.7 L (22.0-30.0) sec Sodium (137-145) mmol/L Potassium (3.5-5.1) mmol/L Chloride (98-107) mmol/L Carbon Dioxide (22-30) mmol/L Anion Gap mmol/L BUN (9-20) mg/dL Creatinine (0.66-1.25) mg/dL Est GFR (CKD-EPI)AfAm (>60 ml/min/1.73 sqM) Est GFR (CKD-EPI)NonAf (>60 ml/min/1.73 sqM) Glucose (74-99) mg/dL Calcium (8.4-10.2) mg/dL Total Bilirubin (0.2-1.3) mg/dL AST (17-59) U/L ALT (4-49) U/L Alkaline Phosphatase (38-126) U/L Total Protein (6.3-8.2) g/dL Albumin (3.5-5.0) g/dL Stool Occult Blood (Negative) Disposition Clinical Impression: Hematochezia Disposition: LEFT AGAINST MEDICAL ADVICE Condition: Fair Referrals: [facility] [Primary Care Provider] - 1-2 days Time of Disposition: 01:00
== END 2023-04-15 22:52 | disposition left against medical advice (07) ==
LOC: EC 20:10
DX: K92.1 Melena (principal); I25.10 Atherosclerotic heart disease of native coronary artery without angina pectoris; I10 Essential (primary) hypertension; F17.290 Nicotine dependence, other tobacco product, uncomplicated; Z79.899 Other long term (current) drug therapy; Z53.29 Procedure and treatment not carried out because of patient's decision for other reasons
CPT/HCPCS: 36415; 80053; 82272; 85025; 85610; 85730; 99284

== ENCOUNTER → 2023-04-18 | Outpatient (CLI) | payer OTHER ==
[2023-04-18 15:26] LABS: HGB 7.3 d/dL (12.0-15.0); MCH 22.1 pg (27.0-32.0); MCHC 28.1 d/dL (32.0-37.0); MCV 78.8 FL (80.0-97.0); Mean Platelet Volume 12.3 FL (9.5-12.2); NRBC Per 100 WBC 0 X 10*3/uL (0.00-0.01); Platelet Count 455 X 10*3/uL (140-440); RDW 24.7 % (11.5-14.5); WBC 12.27 X 10*3/uL (4.50-10.00)
== END | disposition home or self-care (01) ==
LOC: LABWHC1 09:23
PROVIDERS: ATTEND Nurse Practitioner Family
DX: D64.9 Anemia, unspecified (principal)
CPT/HCPCS: 36415; 85027

== ENCOUNTER → 2023-04-20 | Outpatient (CLI) | payer OTHER ==
[2023-04-20 14:32] LABS: Anisocytosis Moderate; HCT 26.8 % (39.0-53.0); HGB 8.1 gm/dL (13.0-17.5); Hypochromasia Marked; MCH 22.8 pg (25.0-35.0); Mean Platelet Volume 8.8; Microcytosis Moderate; Platelet Count 407 k/uL (150-450); RBC 3.53 m/uL (4.30-5.90); RDW 21.9 % (11.5-15.5); WBC 11.1 k/uL (3.8-10.6)
== END | disposition home or self-care (01) ==
LOC: LABWHC1 13:25
PROVIDERS: ATTEND Nurse Practitioner Family
DX: D64.9 Anemia, unspecified (principal)
CPT/HCPCS: 36415; 85027

== ENCOUNTER 2023-05-01 08:27 | Day surgery (SDC) | payer OTHER ==
[2023-05-01 09:07] LABS: Mean Platelet Volume 10.1; Platelet Count 313 k/uL (150-450)
[2023-05-01 09:19] LABS: INR 1.1 (<1.2); Prothrombin Time 11.3 sec (9.0-12.0)
[2023-05-01] MEDS ORDERED: ALPRAZolam 0.5 MG TAB PO STA (09:36)
[2023-05-01 10:09] VITALS: RESP 18
[2023-05-01 10:10] VITALS: TEMP 97.6
--- NOTE | 2023-05-01 10:58 | CT ---
EXAMINATION TYPE: CT biopsy liver DATE OF EXAM: 05/01/2023 10:48 AM CLINICAL INDICATION:Male, 42 years old with history of K76.89 OTHER SPECIFIED DISEASES OF LIVER; COMPARISON: Pet/CT 04/06/2023, MR liver 03/23/2023 CT DLP: 2144 mGycm, Automated exposure control for dose reduction was used. Contrast used: mL of , none Oral contrast used: none ATTENDING: Dr. Lester Davenport TECHNIQUE: CT guided percutaneous liver biopsy using coaxial method. Moderate conscious sedation was used. The p atient was monitored by a qualified trained nurse independent of the Radiologist during sedation. The Radiologist intra-service time with the patient under sedation was [address] or more [address] dose r eduction strategies were utilized during this examination. Total CT dose 2144 mGycm. FINDINGS: The procedure was explained to the patient including risks of bleeding, bruising, infection, damage t o nearby organs and need for additional therapy including potential surgery. All questions were answ ered and consent was obtained. The previous studies were reviewed. The patient was placed on the CT couch in the supine position. The overlying skin was marked and prepped using sterile method. Timeout was taken per protocol. Follo wing administration of local anesthesia a 18-gauge coaxial needle was introduced on the left hepatic lobe mass. The coaxial needle tip was directed into the mass with CT guidance. Multiple coaxial biop sies were then obtained. Following the procedure the needle was removed and sterile dressing was applied to the percutaneous site. Post biopsy imaging demonstrated no evidence of hemorrhage. Patien t was taken for postprocedure observation in stable condition. IMPRESSIONS: Status post percutaneous left hepatic lobe mass biopsy as described above. Pathology results pending.
[2023-05-01 14:17] VITALS: BP 104/52; PULSE 58
== END 2023-05-01 14:18 | disposition home or self-care (01) ==
LOC: RADPROMAIN 08:27
PROVIDERS: ATTEND Internal Medicine
DX: K76.89 Other specified diseases of liver (principal)
CPT/HCPCS: 36415; 47000; 77012; 85049; 85610; 88307

== ENCOUNTER 2023-05-22 11:37 | Emergency (ER) | payer OTHER ==
[2023-05-22 12:07] VITALS: BP 97/43; PULSE 72; RESP 18; TEMP 97.9
[2023-05-22 12:31] LABS: Anisocytosis Slight; Basophils # (A) 0.1 k/uL (0-0.2); Basophils % (A) 1 %; Eosinophils # (A) 0.4 k/uL (0-0.7); Eosinophils % (A) 4 %; HCT 30.6 % (39.0-53.0); HGB 9.3 gm/dL (13.0-17.5); Hypochromasia Marked; Lymphocytes # (A) 1.6 k/uL (1.0-4.8); Lymphocytes % (A) 15 %; MCH 23.4 pg (25.0-35.0); MCHC 30.4 g/dL (31.0-37.0); Mean Platelet Volume 9.5; Microcytosis Moderate; Monocytes # (A) 0.6 k/uL (0-1.0); Monocytes % (A) 5 %; Neutrophils # (A) 8.1 k/uL (1.3-7.7); Neutrophils % (A) 75 %; Platelet Count 366 k/uL (150-450); RBC 3.97 m/uL (4.30-5.90); RDW 19.9 % (11.5-15.5); WBC 10.8 k/uL (3.8-10.6)
[2023-05-22 12:45] LABS: INR 1.1 (<1.2); Partial Thromboplastin Time 22.6 sec (22.0-30.0); Prothrombin Time 11.8 sec (9.0-12.0)
[2023-05-22 12:47] LABS: ALT 34 U/L (4-49); AST 97 U/L (17-59); African American GFR (CKD) >90 (>60 ml/min/1.73 sqM); Albumin 3.7 g/dL (3.5-5.0); Alkaline Phosphatase 592 U/L (38-126); Amylase 52 U/L (30-110); Anion Gap 9 mmol/L; Blood Urea Nitrogen 10 mg/dL (9-20); Carbon Dioxide 27 mmol/L (22-30); Chloride 101 mmol/L (98-107); Glucose 105 mg/dL (74-99); Lipase 61 U/L (23-300); Non-African American GFR(CKD) >90 (>60 ml/min/1.73 sqM); Potassium 4.4 mmol/L (3.5-5.1); Sodium 137 mmol/L (137-145); Total Bilirubin 0.7 mg/dL (0.2-1.3); Total Protein 8.5 g/dL (6.3-8.2)
--- NOTE | 2023-05-22 13:21 | ED ---
Abdominal Pain HPI - General Chief Complaint: Abdominal Pain Stated Complaint: weakness, leg/side pain Time Seen by Provider: 05/22/23 12:18 Source: patient Mode of arrival: ambulatory Limitations: no limitations - History of Present Illness Initial Comments: Patient 42-year-old male presenting to the emergency room with complaints of worsening of generalized abdominal pain with known abdominal cancer with metastatic tasks disease to his liver. He reports associated nausea without vomiting. He denies any chest pain, shortness of breath, fevers or chills. - Related Data Home Medications Medication Instructions Recorded Confirmed Docusate [Colace] 100 mg PO BID PRN 04/15/23 05/21/23 HYDROcodone/APAP 5-325MG [[place] 1 tab PO Q4HR PRN 04/15/23 05/21/23 5-325] Metoprolol Succinate [Metoprolol 25 mg PO DAILY 04/19/23 05/21/23 Succinate ER] Allergies Allergy/AdvReac Type Severity Reaction Status Date / Time No Known Allergies Allergy Verified 05/21/23 16:08 Review of Systems ROS Statement: Those systems with pertinent positive or pertinent negative responses have been documented in the HPI. ROS Other: All systems not noted in ROS Statement are negative. Past Medical History Past Medical History: Coronary Artery Disease (CAD), Cancer, Hyperlipidemia, Hypertension, Liver Disease Additional Past Medical History / Comment(s): Liver mass, Stage 4 colon cancer History of Any Multi-Drug Resistant Organisms: None Reported Past Surgical History: Heart Catheterization With Stent Additional Past Surgical History / Comment(s): liver biopsy Date of Last Stent Placement:: 2011 Past Psychological History: No Psychological Hx Reported Smoking Status: Vaper Past Alcohol Use History: None Reported Past Drug Use History: Marijuana General Exam - General Exam Comments Initial Comments: Visual Physical Exam Vital signs reviewed General: Well-appearing, nontoxic, no acute distress. 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 Limitations: no limitations Course Vital Signs 05/22/23 12:05 Temperature 97.9 F Pulse Rate 72 Respiratory 18 Rate Blood Pressure 97/43 O2 Sat by Pulse 100 Oximetry Medical Decision Making - Lab Data Result diagrams: 05/22/23 12:18 05/22/23 12:18 Lab Results 05/22/23 05/22/23 05/22/23 Range/Units 12:18 12:18 12:18 WBC 10.8 H (3.8-10.6) k/uL RBC 3.97 L (4.30-5.90) m/uL Hgb 9.3 L (13.0-17.5) gm/dL Hct 30.6 L (39.0-53.0) % MCV 77.0 L (80.0-100.0) fL MCH 23.4 L (25.0-35.0) pg MCHC 30.4 L (31.0-37.0) g/dL RDW 19.9 H (11.5-15.5) % Plt Count 366 (150-450) k/uL MPV 9.5 Neutrophils % 75 % Lymphocytes % 15 % Monocytes % 5 % Eosinophils % 4 % Basophils % 1 % Neutrophils # 8.1 H (1.3-7.7) k/uL Lymphocytes # 1.6 (1.0-4.8) k/uL Monocytes # 0.6 (0-1.0) k/uL Eosinophils # 0.4 (0-0.7) k/uL Basophils # 0.1 (0-0.2) k/uL Hypochromasia Marked Anisocytosis Slight Microcytosis Moderate PT 11.8 (9.0-12.0) sec INR 1.1 (<1.2) APTT 22.6 (22.0-30.0) sec Sodium 137 (137-145) mmol/L Potassium 4.4 (3.5-5.1) mmol/L Chloride 101 (98-107) mmol/L Carbon Dioxide 27 (22-30) mmol/L Anion Gap 9 mmol/L BUN 10 (9-20) mg/dL Creatinine 0.62 L (0.66-1.25) mg/dL Est GFR (CKD-EPI)AfAm >90 (>60 ml/min/1.73 sqM) Est GFR (CKD-EPI)NonAf >90 (>60 ml/min/1.73 sqM) Glucose 105 H (74-99) mg/dL Plasma Lactic Acid Markus (0.7-2.0) mmol/L Calcium 9.0 (8.4-10.2) mg/dL Total Bilirubin 0.7 (0.2-1.3) mg/dL AST 97 H (17-59) U/L ALT 34 (4-49) U/L Alkaline Phosphatase 592 H (38-126) U/L Troponin I (0.000-0.034) ng/mL Total Protein 8.5 H (6.3-8.2) g/dL Albumin 3.7 (3.5-5.0) g/dL Amylase 52 (30-110) U/L Lipase 61 (23-300) U/L 05/22/23 05/22/23 Range/Units 12:18 12:18 WBC (3.8-10.6) k/uL RBC (4.30-5.90) m/uL Hgb (13.0-17.5) gm/dL Hct (39.0-53.0) % MCV (80.0-100.0) fL MCH (25.0-35.0) pg MCHC (31.0-37.0) g/dL RDW (11.5-15.5) % Plt Count (150-450) k/uL MPV Neutrophils % % Lymphocytes % % Monocytes % % Eosinophils % % Basophils % % Neutrophils # (1.3-7.7) k/uL Lymphocytes # (1.0-4.8) k/uL Monocytes # (0-1.0) k/uL Eosinophils # (0-0.7) k/uL Basophils # (0-0.2) k/uL Hypochromasia Anisocytosis Microcytosis PT (9.0-12.0) sec INR (<1.2) APTT (22.0-30.0) sec Sodium (137-145) mmol/L Potassium (3.5-5.1) mmol/L Chloride (98-107) mmol/L Carbon Dioxide (22-30) mmol/L Anion Gap mmol/L BUN (9-20) mg/dL Creatinine (0.66-1.25) mg/dL Est GFR (CKD-EPI)AfAm (>60 ml/min/1.73 sqM) Est GFR (CKD-EPI)NonAf (>60 ml/min/1.73 sqM) Glucose (74-99) mg/dL Plasma Lactic Acid Markus 2.4 H* (0.7-2.0) mmol/L Calcium (8.4-10.2) mg/dL Total Bilirubin (0.2-1.3) mg/dL AST (17-59) U/L ALT (4-49) U/L Alkaline Phosphatase (38-126) U/L Troponin I <0.012 (0.000-0.034) ng/mL Total Protein (6.3-8.2) g/dL Albumin (3.5-5.0) g/dL Amylase (30-110) U/L Lipase (23-300) U/L Disposition Clinical Impression: Abdominal pain Disposition: LEFT AGAINST MEDICAL ADVICE Condition: Undetermined Is patient prescribed a controlled substance at d/c from ED?: No Referrals: [facility] [Primary Care Provider] - 1-2 days Time of Disposition: 13:20
== END 2023-05-22 13:30 | disposition left against medical advice (07) ==
LOC: EC 11:37
DX: R10.84 Generalized abdominal pain (principal); I10 Essential (primary) hypertension; I25.10 Atherosclerotic heart disease of native coronary artery without angina pectoris; F17.290 Nicotine dependence, other tobacco product, uncomplicated; F12.90 Cannabis use, unspecified, uncomplicated; Z79.899 Other long term (current) drug therapy; Z53.29 Procedure and treatment not carried out because of patient's decision for other reasons
CPT/HCPCS: 36415; 80053; 82150; 83605; 83690; 84484; 85025; 85610; 85730; 93005; 99284

== ENCOUNTER 2023-05-25 08:17 | Day surgery (SDC) | payer OTHER ==
[2023-05-25] MEDS ORDERED: ALPRAZolam 0.5 MG TAB PO PRN (08:41)
[2023-05-25 09:18] LABS: Mean Platelet Volume 9.3; Platelet Count 379 k/uL (150-450)
[2023-05-25 09:25] VITALS: TEMP 97.8
[2023-05-25 09:34] LABS: INR 1.1 (<1.2); Prothrombin Time 11.6 sec (9.0-12.0)
[2023-05-25] MEDS: HYDROmorphone 0.5 MG/0.5 ML SYRINGE IVP PRN ×2 (09:53→10:13)
[2023-05-25] MEDS ORDERED: MICROFIBRILLAR COLLAGEN HEMOST 0.5 GM PACK TOPICAL ONE (10:41)
[2023-05-25] MEDS ORDERED: HYDROcodone/APAP 5-325MG 1 EACH TAB PO PRN (11:05)
[2023-05-25 11:19] VITALS: BP 127/74; RESP 16
--- NOTE | 2023-05-25 11:19 | US ---
EXAMINATION TYPE: US biopsy liver DATE OF EXAM: 05/25/2023 COMPARISON: NONE HISTORY: Colon cancer with liver masses. Findings: The procedure was explained to the patient. The risks, complications, benefits, and altern atives were discussed and any questions were answered. Informed consent was obtained. Patient was p laced supine on the ultrasound table and prepped and draped in the usual sterile fashion. All elements of maximal barrier and sterile technique utilized. Utilizing CT guidance, an 18 gauge core biopsy needle access into the right lobe of the liver mass w as achieved and a Three 18 gauge core samples were obtained. The patient was stable throughout the p rocedure and remained stable upon discharge. IMPRESSION: 1. Successful 18 gauge core biopsy of the liver.
[2023-05-25 14:49] VITALS: PULSE 63
== END 2023-05-25 14:30 | disposition home or self-care (01) ==
LOC: RADPROMAIN 08:17
PROVIDERS: ATTEND Internal Medicine
DX: C19 Malignant neoplasm of rectosigmoid junction (principal)
CPT/HCPCS: 88305; 88173; 85049; 85610; 88342; 88307; 88341; 36415; 47000; 76942; J1170

== ENCOUNTER 2023-06-02 08:18 | Emergency (ER) | payer OTHER ==
[2023-06-02] MEDS ORDERED: HYDROmorphone 1 MG/ML 1 ML SYRINGE IVP STA (08:47)
[2023-06-02] MEDS ORDERED: SODIUM CHLORIDE 0.9% 1,000 ML IV STA ×2 (08:47)
[2023-06-02] MEDS ORDERED: ONDANSETRON 4 MG/2 ML VIAL IVP STA (08:47)
[2023-06-02] MEDS ORDERED: FAMOTIDINE 20 MG/2 ML VIAL IV STA (08:48)
--- NOTE | 2023-06-02 08:51 | ED ---
Abdominal Pain HPI - General Chief Complaint: Abdominal Pain Stated Complaint: vomiting Time Seen by Provider: 06/02/23 08:36 Source: patient, RN notes reviewed, old records reviewed Mode of arrival: ambulatory Limitations: no limitations - History of Present Illness Initial Comments: 42-year-old chronically ill-appearing male presents alert and oriented 4 with complaints of worsening abdominal pain with nausea, constipation and pain with bowel movements. States that he has not been able to eat very much due to the pain. Patient states he has a history of colon cancer with metastasis. He is under the care of Dr. Rosa but does not know the plan at this time. He did have a PET scan that showed metastasis to liver and lungs. He states he is currently living in his van, he is not suicidal but states he just does not want to live like this. MD Complaint: abdominal pain -: month(s) (2) Location: diffuse Severity scale (1-10): 10 Consistency: constant Improves With: nothing Associated Symptoms: nausea, constipation - Related Data Home Medications Medication Instructions Recorded Confirmed Docusate [Colace] 100 mg PO BID PRN 04/15/23 05/25/23 HYDROcodone/APAP 5-325MG [[place] 1 tab PO Q4HR PRN 04/15/23 05/25/23 5-325] Metoprolol Succinate [Metoprolol 25 mg PO DAILY 04/19/23 05/25/23 Succinate ER] Allergies Allergy/AdvReac Type Severity Reaction Status Date / Time No Known Allergies Allergy Verified 06/02/23 08:22 Review of Systems ROS Statement: Those systems with pertinent positive or pertinent negative responses have been documented in the HPI. ROS Other: All systems not noted in ROS Statement are negative. Past Medical History Past Medical History: Coronary Artery Disease (CAD), Cancer, Hyperlipidemia, Hypertension, Liver Disease Additional Past Medical History / Comment(s): Liver mass, Stage 4 colon cancer History of Any Multi-Drug Resistant Organisms: None Reported Past Surgical History: Heart Catheterization With Stent Additional Past Surgical History / Comment(s): liver biopsy Date of Last Stent Placement:: 2011 Past Psychological History: No Psychological Hx Reported Smoking Status: Vaper Past Alcohol Use History: None Reported Past Drug Use History: Marijuana General Exam Limitations: no limitations General appearance: alert, anxious Head exam: Present: atraumatic, normocephalic Eye exam: Present: normal appearance. Absent: scleral icterus, conjunctival injection, periorbital swelling, periorbital tenderness Respiratory exam: Present: normal lung sounds bilaterally. Absent: respiratory distress, accessory muscle use Cardiovascular Exam: Present: tachycardia GI/Abdominal exam: Present: soft, tenderness, guarding. Absent: distended, rebound, rigid Extremities exam: Present: full ROM, normal capillary refill. Absent: pedal edema Back exam: Present: full ROM, other (nodule left thoracic paraspinal). Absent: tenderness, CVA tenderness (R), CVA tenderness (L), rash noted Neurological exam: Present: alert, oriented X3 Psychiatric exam: Present: depressed, anxious. Absent: homicidal ideation, suicidal ideation Skin exam: Present: warm, dry, intact, other (ashen). Absent: rash, cyanosis, diaphoretic, erythema, petechiae Course Vital Signs 06/02/23 06/02/23 08:19 10:27 Temperature 98.1 F 97.8 F Pulse Rate 104 H 76 Respiratory 22 18 Rate Blood Pressure 120/81 130/67 O2 Sat by Pulse 97 98 Oximetry Medical Decision Making - Medical Decision Making Was pt. sent in by a medical professional or institution (, PA, GLOVE PAIRER, urgent care, hospital, or long-term...) When possible be specific @ -No Did you speak to anyone other than the patient for history (EMS, parent, family, police, friend...)? What history was obtained from this source @ -No Did you review nursing and triage notes (agree or disagree)? Why? @ -I reviewed and agree with nursing and triage notes Were old charts reviewed (outside hosp., previous admission, EMS record, old EKG, old radiological studies, urgent care reports/EKG's, long-term records)? Report findings @ -MRI March 23, PET scan April 06, labs May 22, emergency room record May 22, Differential Diagnosis (chest pain, altered mental status, abdominal pain women, abdominal pain men, vaginal bleeding, weakness, fever, dyspnea, syncope, headache, dizziness, GI bleed, back pain, seizure, CVA, palpatations, mental health, musculoskeletal)? @ -Differential Abdominal Pain Men: Appendicitis, cholecystitis, diverticulosis, ischemic bowel, pancreatitis, hepatitis, UTI, gastroenteritis, AAA, incarcerated hernia, bowel obstruction, constipation, inflammatory bowel, hepatitis, peptic ulcer disease, splenic infarction, perforated viscus, testicular torsion, this is not an all-inclusive list EKG interpreted by me (3pts min.). @ -n/a X-rays interpreted by me (1pt min.). @ -yes X-ray of the abdomen interpreted by me shows moderate constipation with no evidence of free air or obstruction. Multiple pulmonary nodules at the lung bases. CT interpreted by me (1pt min.). @ -None done U/S interpreted by me (1pt. min.). @ -None done What testing was considered but not performed or refused? (CT, X-rays, U/S, labs)? Why? @ -None What meds were considered but not given or refused? Why? @ -None Did you discuss the management of the patient with other professionals (prof ceron i.e. , PA, GLOVE PAIRER, lab, RT, psych nurse, social staff worker, swatch maker, teacher, bank operations officer, family caseworker)? Give summary @ -No Was smoking cessation discussed for >3mins.? @ -No Was critical care preformed (if so, how long)? @ -No Were there social determinants of health that impacted care today? How? (Homelessness, low income, unemployed, alcoholism, drug addiction, transportat ion, low edu. Level, literacy, decrease access to med. care, longterm, rehab)? @ -Homelessness, patient states living in his van Was there de-escalation of care discussed even if they declined (Discuss DNR or withdrawal of care, Hospice)? DNR status @ -I did discuss hospice with the patient however he declines at this time. What co-morbidities impacted this encounter? (DM, HTN, Smoking, COPD, CAD, Cancer, CVA, ARF, Chemo, Hep., AIDS, mental health diagnosis, sleep apnea, morbid obesity)? @ -Coronary artery disease, colon cancer stage IV with metastasis to liver and lung, hypertension Was patient admitted / discharged? Hospital course, mention meds given and route, prescriptions, significant lab abnormalities, going to OR and other pertinent info. @ -Discharged 42-year-old chronically ill-appearing male presents alert and oriented 4 with complaints of worsening abdominal pain with nausea, constipation and pain with bowel movements. States that he has not been able to eat very much due to the pain. Patient states he has a history of colon cancer with metastasis. He is under the care of Dr. Rosa but does not know the plan at this time. He did have a PET scan that showed metastasis to liver and lungs. He states he is currently living in his van, he is not suicidal but states he just does not want to live like this. Patient was seen in the emergency room on May 22 with complaints of worsening abdominal pain with known abdominal cancer with metastasis to liver. He left AGAINST MEDICAL ADVICE. Records reviewed showing an MRI liver was performed, March 23 showing greater than 20 pulmonary nodules in combination with multiple hepatic masses concerning for metastatic disease. PET scan April 06 showing overall findings consistent with primary distal sigmoid cancer with pulmonary and hepatic metastatic disease and a few abnormal lymph nodes/peritoneal deposits in the abdomen and pelvis. Hemoglobin 8.8, previous 9.3 on May 22. 8.1 on April 20. No evidence of lactic acidosis. Alk phos elevated at 581 May 22 2592. Likely related this metastasis. X-ray of the abdomen interpreted by me shows moderate constipation with no evidence of free air or obstruction. Multiple pulmonary nodules at the lung bases. Radiologist interpretation innumerable nodules visualized lower lungs compatible with known metastatic disease. Enlarged liver shadow in keeping with diffuse metastatic involvement. Moderate stool in the left side of the abdomen. Nonobstructive bowel gas pattern. Patient was given Pepcid Dilaudid Zofran and IV fluids reports feeling much better. He prefers to be discharged home with follow-up with his oncologist outpatient. Vital signs are stable. Case was discussed with Dr. Palomares. Undiagnosed new problem with uncertain prognosis? @ -No Drug Therapy requiring intensive monitoring for toxicity (Heparin, Nitro, Insulin, Cardizem)? @ -No Were any procedures done? @ -No Diagnosis/symptom? @ -Abdominal pain, colon cancer with metastasis to liver and lung, constipation Acute, or Chronic, or Acute on Chronic? @ -Acute on chronic Uncomplicated (without systemic symptoms) or Complicated (systemic symptoms)? @ -complicated Side effects of treatment? @ -No Exacerbation, Progression, or Severe Exacerbation? @ -No Poses a threat to life or bodily function? How? (Chest pain, USA, [place], pneumonia, PE, COPD, DKA, ARF, appy, cholecystitis, CVA, Diverticulitis, Homicidal, Suicidal, threat to staff... and all critical care pts) @ -No - Lab Data Result diagrams: 06/02/23 08:56 06/02/23 08:56 Lab Results 06/02/23 06/02/23 06/02/23 Range/Units 08:56 08:56 08:56 WBC 9.6 (3.8-10.6) k/uL RBC 3.75 L (4.30-5.90) m/uL Hgb 8.8 L (13.0-17.5) gm/dL Hct 28.1 L (39.0-53.0) % MCV 74.8 L (80.0-100.0) fL MCH 23.4 L (25.0-35.0) pg MCHC 31.3 (31.0-37.0) g/dL RDW 19.1 H (11.5-15.5) % Plt Count 383 (150-450) k/uL MPV 9.8 Neutrophils % 73 % Lymphocytes % 17 % Monocytes % 6 % Eosinophils % 3 % Basophils % 0 % Neutrophils # 7.0 (1.3-7.7) k/uL Lymphocytes # 1.7 (1.0-4.8) k/uL Monocytes # 0.6 (0-1.0) k/uL Eosinophils # 0.3 (0-0.7) k/uL Basophils # 0.0 (0-0.2) k/uL Hypochromasia Moderate Anisocytosis Slight Microcytosis Moderate PT 11.9 (9.0-12.0) sec INR 1.2 H (<1.2) APTT 22.6 (22.0-30.0) sec Sodium 132 L (137-145) mmol/L Potassium 4.2 (3.5-5.1) mmol/L Chloride 99 (98-107) mmol/L Carbon Dioxide 25 (22-30) mmol/L Anion Gap 8 mmol/L BUN 11 (9-20) mg/dL Creatinine 0.60 L (0.66-1.25) mg/dL Est GFR (CKD-EPI)AfAm >90 (>60 ml/min/1.73 sqM) Est GFR (CKD-EPI)NonAf >90 (>60 ml/min/1.73 sqM) Glucose 97 (74-99) mg/dL Plasma Lactic Acid Markus (0.7-2.0) mmol/L Calcium 9.0 (8.4-10.2) mg/dL Total Bilirubin 0.9 (0.2-1.3) mg/dL AST 84 H (17-59) U/L ALT 32 (4-49) U/L Alkaline Phosphatase 581 H (38-126) U/L Total Protein 8.0 (6.3-8.2) g/dL Albumin 3.4 L (3.5-5.0) g/dL Amylase 47 (30-110) U/L Lipase 51 (23-300) U/L 06/02/23 Range/Units 08:56 WBC (3.8-10.6) k/uL RBC (4.30-5.90) m/uL Hgb (13.0-17.5) gm/dL Hct (39.0-53.0) % MCV (80.0-100.0) fL MCH (25.0-35.0) pg MCHC (31.0-37.0) g/dL RDW (11.5-15.5) % Plt Count (150-450) k/uL MPV Neutrophils % % Lymphocytes % % Monocytes % % Eosinophils % % Basophils % % Neutrophils # (1.3-7.7) k/uL Lymphocytes # (1.0-4.8) k/uL Monocytes # (0-1.0) k/uL Eosinophils # (0-0.7) k/uL Basophils # (0-0.2) k/uL Hypochromasia Anisocytosis Microcytosis PT (9.0-12.0) sec INR (<1.2) APTT (22.0-30.0) sec Sodium (137-145) mmol/L Potassium (3.5-5.1) mmol/L Chloride (98-107) mmol/L Carbon Dioxide (22-30) mmol/L Anion Gap mmol/L BUN (9-20) mg/dL Creatinine (0.66-1.25) mg/dL Est GFR (CKD-EPI)AfAm (>60 ml/min/1.73 sqM) Est GFR (CKD-EPI)NonAf (>60 ml/min/1.73 sqM) Glucose (74-99) mg/dL Plasma Lactic Acid Markus 1.6 (0.7-2.0) mmol/L Calcium (8.4-10.2) mg/dL Total Bilirubin (0.2-1.3) mg/dL AST (17-59) U/L ALT (4-49) U/L Alkaline Phosphatase (38-126) U/L Total Protein (6.3-8.2) g/dL Albumin (3.5-5.0) g/dL Amylase (30-110) U/L Lipase (23-300) U/L Disposition Clinical Impression: Abdominal pain, Colon cancer metastasized to multiple sites, Constipation Disposition: HOME SELF-CARE Condition: Good Instructions (If sedation given, give patient instructions): Abdominal Pain (ED) Additional Instructions: Please follow-up with your oncologist on Sunday. Return to the emergency room with any new or concerning symptoms. Increase your fluid intake to prevent constipation. Is patient prescribed a controlled substance at d/c from ED?: No Referrals: [facility] [Primary Care Provider] - 1-2 days Time of Disposition: 10:09
[2023-06-02 09:20] LABS: Anisocytosis Slight; Basophils % (A) 0 %; Eosinophils # (A) 0.3 k/uL (0-0.7); Eosinophils % (A) 3 %; HCT 28.1 % (39.0-53.0); HGB 8.8 gm/dL (13.0-17.5); Hypochromasia Moderate; Lymphocytes # (A) 1.7 k/uL (1.0-4.8); Lymphocytes % (A) 17 %; MCH 23.4 pg (25.0-35.0); MCHC 31.3 g/dL (31.0-37.0); MCV 74.8 fL (80.0-100.0); Mean Platelet Volume 9.8; Microcytosis Moderate; Monocytes # (A) 0.6 k/uL (0-1.0); Monocytes % (A) 6 %; Neutrophils % (A) 73 %; Platelet Count 383 k/uL (150-450); RBC 3.75 m/uL (4.30-5.90); RDW 19.1 % (11.5-15.5); WBC 9.6 k/uL (3.8-10.6)
[2023-06-02 09:36] LABS: African American GFR (CKD) >90 (>60 ml/min/1.73 sqM); Albumin 3.4 g/dL (3.5-5.0); Amylase 47 U/L (30-110); Anion Gap 8 mmol/L; Blood Urea Nitrogen 11 mg/dL (9-20); Carbon Dioxide 25 mmol/L (22-30); Chloride 99 mmol/L (98-107); Glucose 97 mg/dL (74-99); Non-African American GFR(CKD) >90 (>60 ml/min/1.73 sqM); Potassium 4.2 mmol/L (3.5-5.1); Sodium 132 mmol/L (137-145)
[2023-06-02 09:37] LABS: ALT 32 U/L (4-49); AST 84 U/L (17-59); Alkaline Phosphatase 581 U/L (38-126); Lipase 51 U/L (23-300); Total Bilirubin 0.9 mg/dL (0.2-1.3)
[2023-06-02 09:57] LABS: INR 1.2 (<1.2); Partial Thromboplastin Time 22.6 sec (22.0-30.0); Prothrombin Time 11.9 sec (9.0-12.0)
--- NOTE | 2023-06-02 10:00 | XR ---
EXAMINATION TYPE: XR KUB DATE OF EXAM: 06/02/2023 Comparison: Correlation PET/CT 03/27/2023 Clinical History: 42-year-old male pain and vomiting, abdominal pain Findings: Innumerable pulmonary nodules noted at the lung bases. The liver shadow appears enlarged likely due t o diffuse metastatic involvement. Moderate stool in the left side of the abdomen. Nonobstructive rinku l gas pattern. No evidence for free intraperitoneal air. Impression: 1. Innumerable nodules of the visualized lower lungs compatible with known metastatic disease. 2. Enlarged liver shadow in keeping with known diffuse metastatic involvement. 3. Moderate stool in the left side of the abdomen. Nonobstructive bowel gas pattern.
[2023-06-02 10:28] VITALS: BP 130/67; PULSE 76; RESP 18; TEMP 97.8
== END 2023-06-02 10:28 | disposition home or self-care (01) ==
LOC: EC 08:18
DX: C22.0 Liver cell carcinoma (principal); C78.02 Secondary malignant neoplasm of left lung; K59.00 Constipation, unspecified; I10 Essential (primary) hypertension; I25.10 Atherosclerotic heart disease of native coronary artery without angina pectoris; F12.90 Cannabis use, unspecified, uncomplicated; F17.290 Nicotine dependence, other tobacco product, uncomplicated; Z79.899 Other long term (current) drug therapy
CPT/HCPCS: 36415; 80053; 82150; 83605; 83690; 85025; 85610; 85730; 74018; 99284; 96374; 96375 ×2; 96361; J2405; J3490; J1170

== ENCOUNTER 2023-06-07 11:51 | Emergency (ER) | payer OTHER ==
[2023-06-07 11:57] VITALS: TEMP 98.9
[2023-06-07] MEDS ORDERED: SODIUM CHLORIDE 0.9% 2,000 ML IV STA (12:23)
--- NOTE | 2023-06-07 12:26 | ED ---
Abdominal Pain HPI - General Chief Complaint: Abdominal Pain Stated Complaint: constipation Time Seen by Provider: 06/07/23 12:05 Source: patient Mode of arrival: wheelchair Limitations: no limitations - History of Present Illness Initial Comments: 42-year-old male with past medical history of colon cancer metastasized to his liver and lungs presents to the emergency room reporting constipation. States he has not had a bowel movement since the . He has had some gas and mucousy discharge however cannot have a normal bowel movement. He has been taking milk of magnesia without any relief. 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 Has has an appointment today with Dr. Rosa, his oncologist to talk about treatment plans. He has not started any type of treatment including chemo or radiation at this time. He admits he will intermittently have bloody stools but none currently at this time. No issues urinating. No other alleviating, precipitating or modifying factors - Related Data Home Medications Medication Instructions Recorded Confirmed HYDROcodone/APAP 5-325MG [[place] 1 tab PO Q4HR PRN 04/15/23 06/07/23 5-325] ALPRAZolam [Xanax] 0.25 mg PO HS 06/07/23 06/07/23 Allergies Allergy/AdvReac Type Severity Reaction Status Date / Time No Known Allergies Allergy Verified 06/07/23 14:05 Review of Systems ROS Statement: Those systems with pertinent positive or pertinent negative responses have been documented in the HPI. ROS Other: All systems not noted in ROS Statement are negative. Past Medical History Past Medical History: Coronary Artery Disease (CAD), Cancer, Hyperlipidemia, Hypertension, Liver Disease Additional Past Medical History / Comment(s): Liver mass, Stage 4 colon cancer History of Any Multi-Drug Resistant Organisms: None Reported Past Surgical History: Heart Catheterization With Stent Additional Past Surgical History / Comment(s): liver biopsy Date of Last Stent Placement:: 2011 Past Psychological History: No Psychological Hx Reported Smoking Status: Vaper Past Alcohol Use History: None Reported Past Drug Use History: Marijuana General Exam Limitations: no limitations General appearance: alert, anxious Head exam: Present: atraumatic, normocephalic, normal inspection Eye exam: Present: normal appearance, PERRL, EOMI. Absent: scleral icterus, conjunctival injection, periorbital swelling ENT exam: Present: normal exam, mucous membranes moist Neck exam: Present: normal inspection. Absent: tenderness, meningismus, lymphadenopathy Respiratory exam: Present: normal lung sounds bilaterally. Absent: respiratory distress, wheezes, rales, rhonchi, stridor Cardiovascular Exam: Present: regular rate, normal rhythm, normal heart sounds. Absent: systolic murmur, diastolic murmur, rubs, gallop, clicks GI/Abdominal exam: Present: soft, tenderness, normal bowel sounds. Absent: guarding, rebound, rigid Extremities exam: Present: normal inspection, full ROM, normal capillary refill. Absent: tenderness, pedal edema, joint swelling, calf tenderness Back exam: Present: normal inspection Neurological exam: Present: alert, oriented X3, CN II-XII intact Psychiatric exam: Present: normal affect, normal mood Skin exam: Present: warm, dry, intact, normal color. Absent: rash Course Vital Signs 06/07/23 06/07/23 06/07/23 11:53 14:05 15:37 Temperature 98.9 F Pulse Rate 94 96 80 Respiratory 18 20 18 Rate Blood Pressure 110/75 115/84 119/80 O2 Sat by Pulse 97 99 99 Oximetry - Reevaluation(s) Reevaluation #1: Spoke with Madeleine Mosquera from oncology 06/07/23 14:21 Medical Decision Making - Medical Decision Making Was pt. sent in by a medical professional or institution ([facility], [facility], urgent care, hospital, or [facility]...) When possible be specific @ -No Did you speak to anyone other than the patient for history (EMS, parent, family, police, friend...)? What history was obtained from this source @ -No Did you review nursing and triage notes (agree or disagree)? Why? @ -I reviewed and agree with nursing and triage notes Were old charts reviewed (outside hosp., previous admission, EMS record, old EKG, old radiological studies, urgent care reports/EKG's, [facility] records)? Report findings @ -I reviewed patient's previous PET scan from March 2023. Also reviewed patient's liver CT and liver ultrasound guided biopsy report done on May 25 which demonstrated adenocarcinoma consistent with colonic primary Differential Diagnosis (chest pain, altered mental status, abdominal pain women, abdominal pain men, vaginal bleeding, weakness, fever, dyspnea, syncope, headache, dizziness, GI bleed, back pain, seizure, CVA, palpatations, mental health, musculoskeletal)? @ -Differential Abdominal Pain Men: Appendicitis, cholecystitis, diverticulosis, ischemic bowel, pancreatitis, he patitis, UTI, gastroenteritis, AAA, incarcerated hernia, bowel obstruction, constipation, inflammatory bowel, hepatitis, peptic ulcer disease, splenic infarction, perforated viscus, testicular torsion, this is not meant to be an all-inclusive list EKG interpreted by me (3pts min.). @ -Not done X-rays interpreted by me (1pt min.). @ -None done CT interpreted by me (1pt min.). @ -Yes and demonstrates partial large small bowel obstruction secondary to sigmoid mass U/S interpreted by me (1pt. min.). @ -None done What testing was considered but not performed or refused? (CT, X-rays, U/S, labs)? Why? @ -None What meds were considered but not given or refused? Why? @ -None Did you discuss the management of the patient with other professionals (cheyanne xavier i.e. , PA, BMET, lab, RT, psych nurse, healthcare social worker, robotics engineer, teacher, mobile patrol officer, showcase trimmer)? Give summary @ -I spoke with Dr. Erickson from internal medicine who did accept the patient for admission. I also spoke with Norma mosquera from oncology. I also spoke with Dr. Mcallister the general surgeon. He recommended that the patient be transferred as he will only be able to offer a colostomy Was smoking cessation discussed for >3mins.? @ -No Was critical care preformed (if so, how long)? @ -yes, 40 minutes for total consultations on the patient as well as transfer out Were there social determinants of health that impacted care today? How? (Homelessness, low income, unemployed, alcoholism, drug addiction, transportation, low edu. Level, literacy, decrease access to med. care, [facility], rehab)? @ -Patient lives in his van and therefore has difficulty adding to his doctors appointments Was there de-escalation of care discussed even if they declined (Discuss DNR or withdrawal of care, Hospice)? DNR status @ -No What co-morbidities impacted this encounter? (DM, HTN, Smoking, COPD, CAD, Cancer, CVA, ARF, Chemo, Hep., AIDS, mental health diagnosis, sleep apnea, morbid obesity)? @ -Colon cancer with liver and pulmonary metastases Was patient admitted / discharged? Hospital course, mention meds given and route, prescriptions, significant lab abnormalities, going to OR and other pertinent info. @ -Upon arrival patient was placed into room 20. A thorough history and physical exam is performed. IV is established and laboratory studies are conducted. Laboratory studies are conducted. Patient does go for CT which demonstrates a large bowel obstruction secondary to sigmoid and rectal mass. Multiple liver and pulmonary metastases. I did discuss this with oncology and the admitting physician. He was accepted for admission. I also placed a consult for surgery. Discussed with the surgeon that he would likely end up with a colostomy. Patient does not want a colostomy. Called and spoke with Dr. Finn at [facility] who states that he could attempt a rectal stent patient was agreeable. Patient is agreeable to this. He'll be transferred to the ER. He is nothing by mouth. COBRA forms are signed. Also spoke with accepting ER physician who is Dr. Ivey. Undiagnosed new problem with uncertain prognosis? @ -Yes Drug Therapy requiring intensive monitoring for toxicity (Heparin, Nitro, Insulin, Cardizem)? @ -No Were any procedures done? @ -No Diagnosis/symptom? @ -Acute constipation, acute large bowel obstruction secondary to sigmoid/rectal mass, adenocarcinoma with pulmonary and liver metastases Acute, or Chronic, or Acute on Chronic? @ -Acute Uncomplicated (without systemic symptoms) or Complicated (systemic symptoms)? @ -complicated Side effects of treatment? @ -No Exacerbation, Progression, or Severe Exacerbation? @ -No Poses a threat to life or bodily function? How? (Chest pain, USA, OR, pneumonia, PE, COPD, DKA, ARF, appy, cholecystitis, CVA, Diverticulitis, Homicidal, Suicidal, threat to staff... and all critical care pts) @ -yes patient has large bowel obstruction secondary to mass - Lab Data Result diagrams: 06/07/23 12:25 06/07/23 12:25 Lab Results 06/07/23 06/07/23 Range/Units 12:25 12:25 WBC 11.8 H (3.8-10.6) k/uL RBC 3.71 L (4.30-5.90) m/uL Hgb 8.8 L (13.0-17.5) gm/dL Hct 27.9 L (39.0-53.0) % MCV 75.3 L (80.0-100.0) fL MCH 23.8 L (25.0-35.0) pg MCHC 31.7 (31.0-37.0) g/dL RDW 18.9 H (11.5-15.5) % Plt Count 352 (150-450) k/uL MPV 9.3 Neutrophils % 73 % Lymphocytes % 15 % Monocytes % 7 % Eosinophils % 3 % Basophils % 0 % Neutrophils # 8.6 H (1.3-7.7) k/uL Lymphocytes # 1.8 (1.0-4.8) k/uL Monocytes # 0.8 (0-1.0) k/uL Eosinophils # 0.4 (0-0.7) k/uL Basophils # 0.0 (0-0.2) k/uL Hypochromasia Marked Anisocytosis Slight Microcytosis Moderate Sodium 134 L (137-145) mmol/L Potassium 4.2 (3.5-5.1) mmol/L Chloride 99 (98-107) mmol/L Carbon Dioxide 25 (22-30) mmol/L Anion Gap 10 mmol/L BUN 11 (9-20) mg/dL Creatinine 0.63 L (0.66-1.25) mg/dL Est GFR (CKD-EPI)AfAm >90 (>60 ml/min/1.73 sqM) Est GFR (CKD-EPI)NonAf >90 (>60 ml/min/1.73 sqM) Glucose 86 (74-99) mg/dL Calcium 9.0 (8.4-10.2) mg/dL Total Bilirubin 1.0 (0.2-1.3) mg/dL AST 120 H (17-59) U/L ALT 34 (4-49) U/L Alkaline Phosphatase 536 H (38-126) U/L Total Protein 8.1 (6.3-8.2) g/dL Albumin 3.3 L (3.5-5.0) g/dL Lipase 81 (23-300) U/L Disposition Clinical Impression: Colon cancer metastasized to multiple sites, Abdominal pain, Constipation, Large bowel obstruction Disposition: OTHER INSTITUTION NOT DEFINED Condition: Serious Is patient prescribed a controlled substance at d/c from ED?: No Time of Disposition: 14:17 Decision to Admit Reason: Admit from EC Decision Date: 06/07/23 Decision Time: 14:17
[2023-06-07 12:41] LABS: Anisocytosis Slight; Basophils % (A) 0 %; Eosinophils # (A) 0.4 k/uL (0-0.7); Eosinophils % (A) 3 %; HCT 27.9 % (39.0-53.0); HGB 8.8 gm/dL (13.0-17.5); Hypochromasia Marked; Lymphocytes # (A) 1.8 k/uL (1.0-4.8); Lymphocytes % (A) 15 %; MCH 23.8 pg (25.0-35.0); MCHC 31.7 g/dL (31.0-37.0); MCV 75.3 fL (80.0-100.0); Mean Platelet Volume 9.3; Microcytosis Moderate; Monocytes # (A) 0.8 k/uL (0-1.0); Monocytes % (A) 7 %; Neutrophils # (A) 8.6 k/uL (1.3-7.7); Neutrophils % (A) 73 %; Platelet Count 352 k/uL (150-450); RBC 3.71 m/uL (4.30-5.90); RDW 18.9 % (11.5-15.5); WBC 11.8 k/uL (3.8-10.6)
[2023-06-07 13:07] LABS: ALT 34 U/L (4-49); AST 120 U/L (17-59); African American GFR (CKD) >90 (>60 ml/min/1.73 sqM); Albumin 3.3 g/dL (3.5-5.0); Alkaline Phosphatase 536 U/L (38-126); Anion Gap 10 mmol/L; Blood Urea Nitrogen 11 mg/dL (9-20); Carbon Dioxide 25 mmol/L (22-30); Chloride 99 mmol/L (98-107); Glucose 86 mg/dL (74-99); Lipase 81 U/L (23-300); Non-African American GFR(CKD) >90 (>60 ml/min/1.73 sqM); Potassium 4.2 mmol/L (3.5-5.1); Sodium 134 mmol/L (137-145); Total Protein 8.1 g/dL (6.3-8.2)
--- NOTE | 2023-06-07 13:49 | CT ---
EXAMINATION TYPE: CT abdomen pelvis w con CT DLP: 1167.2 mGycm, Automated exposure control for dose reduction was used. DATE OF EXAM: 06/07/2023 1:32 PM COMPARISON: Pet/CT 04/06/2023. CLINICAL INDICATION:Male, 42 years old with history of constipation, colon cancer, obstruction; Const ipation, obstruction, recently diagnosed colon ca. TECHNIQUE: Axial CT of the abdomen and pelvis. Sagittal and coronal reformats were created on a [employer] workstation. Contrast used:100 mL of Isovue 300 with IV Contrast, (none if empty) Oral contrast used: without Oral Contrast (none if empty) FINDINGS: LOWER CHEST: Innumerable masses are seen throughout the lungs, greater than 50. ABDOMEN LIVER: Large low density areas are seen throughout the liver greater than 50 lesions are identified f indings compatible with metastatic disease. GALLBLADDER AND BILE DUCTS: Bladder within normal limits. PANCREAS: Unremarkable. SPLEEN: Unremarkable. ADRENAL GLANDS: Unremarkable. KIDNEYS AND URETERS: No evidence of hydronephrosis or renal calculus. The ureters are unremarkable. PELVIS BLADDER: Unremarkable REPRODUCTIVE: Unremarkable. ABDOMEN & PELVIS STOMACH AND BOWEL: Wall thickening of the sigmoid colon/rectum measuring up tor 12 mm. Upstream dilat ion and increased fecal burden. PERITONEUM/RETROPERITONEUM: No evidence of pneumoperitoneum or free fluid. VASCULATURE: Mild atherosclerotic calcifications are present throughout the abdominal aorta and its b ranches. No evidence of aortic aneurysm. MUSCULOSKELETAL: No acute osseous abnormalities LYMPH NODES: Lymph node measuring 8 mm in short axis near the upper abdomen which is FDG avid and is smaller on prior PET/CT. SOFT TISSUE/ABDOMINAL WALL: Unremarkable IMPRESSION: Sigmoid colon/rectum wall thickening with upstream dilation of the large bowel. Findings most compati ble with known malignancy with partial large bowel obstruction. Progression of disease with Innumerable metastatic disease foci to lungs and liver. Additionally ther e is increase in size of retroperitoneal lymph nodes which are FDG avid on prior.
[2023-06-07] MEDS ORDERED: LACTULOSE 20 GM/30 ML CUP PO PRN (14:17)
[2023-06-07] MEDS ORDERED: NALOXONE 0.4 MG/ML 1 ML VIAL IV PRN (14:17)
[2023-06-07] MEDS ORDERED: SODIUM CHLORIDE 0.9% 1,000 ML IV SCH (14:30)
[2023-06-07] MEDS ORDERED: MORPHINE SULFATE 4 MG/ML SYRINGE IVP STA (15:15)
[2023-06-07 15:38] VITALS: BP 119/80; PULSE 80; RESP 18
== END 2023-06-07 16:26 | disposition other institution (70) ==
LOC: EC 11:51 → UNDOADMIN 14:17 → 5NMEDONC 14:17 → EC 16:26
DX: C18.7 Malignant neoplasm of sigmoid colon (principal); C78.7 Secondary malignant neoplasm of liver and intrahepatic bile duct; K56.609 Unspecified intestinal obstruction, unspecified as to partial versus complete obstruction; I25.10 Atherosclerotic heart disease of native coronary artery without angina pectoris; I10 Essential (primary) hypertension; F17.290 Nicotine dependence, other tobacco product, uncomplicated; F12.90 Cannabis use, unspecified, uncomplicated
CPT/HCPCS: 99291; 96374; 96361 ×3; 36415; 80053; 83690; 85025; 74177; J2270; Q9967